=== PATIENT | female | born 1960 | race Two or more races ===

== ENCOUNTER 2018-10-13 13:00 | Inpatient (IN) | payer OTHER ==
[~2018-10-13] VITALS: Ht 160 cm; Wt 72.6 kg
[2018-10-13] MEDS ORDERED: NAPR500T14 PO (13:52)
[2018-10-21] MEDS ORDERED: NORFLEX100MG PO (13:25)
[2018-10-21] MEDS ORDERED: OXYC1TAB9 PO (13:25)
[2018-10-21] MEDS ORDERED: XARELTO10 MG PO (13:25)
[2018-10-21] MEDS ORDERED: NeurRONTin 100mg cap PO (13:25)
== END 2018-10-21 14:03 | DRG 470 ==
LOC: O/R 10-18 10:08 → MEDI 10-18 10:08 → SURH 10-18 12:30 → MEDI 10-18 21:57 → MEDJ 10-18 21:57 → SURH 10-19 16:43
PROVIDERS: ADMIT Orthopaedic Surgery
PROC: 0SRC0J9 Replacement of Right Knee Joint with Synthetic Substitute, Cemented, Open Approach (ICD-10-PCS; principal; 2018-10-18 12:30)
DX: M17.11 Unilateral primary osteoarthritis, right knee (principal); D62 Acute posthemorrhagic anemia; J44.9 Chronic obstructive pulmonary disease, unspecified; M81.0 Age-related osteoporosis without current pathological fracture

== ENCOUNTER 2021-11-12 14:05 | Inpatient (IN) | payer OTHER ==
[~2021-11-12] VITALS: Ht 160 cm; Wt 77.1 kg
[~2021-11-12 14:05] MED LIST: NAPR500T14 PO; NORFLEX100MG PO; NeurRONTin 100mg cap PO; OXYC1TAB9 PO; XARELTO10 MG PO
[2021-11-14] MEDS ORDERED: LISINOPRIL-HCT1 EAC1 PO (09:11)
[2021-11-14] MEDS ORDERED: CRESTOR40 MG PO (09:11)
[2021-11-18] MEDS ORDERED: IBANDRONATE SO150 MG (08:43)
[2021-11-18] MEDS ORDERED: ENALAPRIL MALEA10 MG (08:43)
== END 2021-11-20 16:12 | DRG 470 ==
LOC: O/R 11-18 04:39 → SURH 11-18 04:39 → SURG 11-18 05:45 → SURH 11-18 10:43
PROVIDERS: ADMIT Orthopaedic Surgery; ATTEND Orthopaedic Surgery
PROC: 0SRD0J9 Replacement of Left Knee Joint with Synthetic Substitute, Cemented, Open Approach (ICD-10-PCS; principal; 2021-11-18 05:45)
DX: M17.11 Unilateral primary osteoarthritis, right knee (principal); D62 Acute posthemorrhagic anemia; J44.9 Chronic obstructive pulmonary disease, unspecified; Z96.653 Presence of artificial knee joint, bilateral